=== PATIENT | male | born 1940 | race Caucasian/White ===

== ENCOUNTER 2021-10-30 13:39 | Outpatient (REF) | payer MEDICARE, OTHER, SELFPAY ==
--- NOTE | 2021-10-30 17:22 | PFT_ITS ---
FLOWS: FEV1 of 97% of predicted at 2.40 L. FVC 89% of predicted at 3.12 L. FEV1 to FVC ratio of 0.77. No bronchodilator response except in small to medium airways. LUNG VOLUMES: Total lung capacity 87% of predicted at 5.55 L. Residual volume 99% of predicted at 2.43 L. Slow vital capacity 80% of predicted at 3.13 L. Expiratory reserve volume 29% of predicted at 0.28 L. Diffusion capacity is moderately decreased, diffusion capacity adjust to being mildly decreased after correction for alveolar ventilation. IMPRESSION: No obstructive or restrictive ventilatory defect. No bronchodilator response except in small to medium airways. Decreased expiratory reserve volume suggests extrathoracic restriction likely secondary to abdominal obesity. Decreased diffusion capacity suggests emphysema. MD MEKA Bear/MODL / [id number]
== END 2021-10-30 13:40 | disposition home or self-care (01) ==
LOC: HO.RESP 13:39
PROVIDERS: PCP Internal Medicine; Visit Provider Hospitalist
DX: R06.00 Dyspnea, unspecified (principal)
CPT/HCPCS: 94060; 94727; 94729; 99202